=== PATIENT | male | born 1985 | race Caucasian/White ===

== ENCOUNTER 2017-05-22 11:51 | Emergency (ER) | payer OTHER, SELFPAY ==
[2017-05-22 11:52] VITALS: BP 140/72; PULSE 109; RESP 20; TEMP 36.7; O2SAT 100; BMI 24.0
--- NOTE | 2017-05-22 11:53 | [facility].EDGENADL ---
ED Disposition Clinical Impression: Chest pain, atypical Acute bronchitis Qualifiers: Bronchitis organism: unspecified organism Qualified Code(s): J20.9 - Acute bronchitis, unspecified Disposition: Home, Self-Care Condition on Discharge: Good Instructions: DI for Atypical Chest Pain, DI for Acute Bronchitis Additional Instructions: You are being provided with a list of physicians available for follow-up of your condition. Please call a physician on this list to arrange a follow-up appointment as soon as possible. Additional instructions for ACUTE BRONCHITIS: Use Tylenol or Ibuprofen for pain or fever. Rest and plenty of fluids. Return immediately if you have an uncontrollable fever greater than 102 degrees, severe headache or neck stiffness, difficulty breathing or shortness of breath, persistent vomiting, severe sore throat or inability to swallow. See your physician if not improving in 4-5 days. Additional instructions for CHEST PAIN: See your physician as soon as possible for further evaluation. Return immediately if worsening chest pain, vomiting, shortness of breath, fever, coughing of blood. Prescriptions: Ibuprofen [Ibuprofen 800mg Tab] 800 mg PO Q8HP PRN #15 tab PRN Reason: Moderate Pain Azithromycin [Z-Anastacio 250mg Tab] 250 mg PO UD DOSE PK #6 tab Benzonatate [Tessalon Perle 100mg Cap] 100 mg PO TIDP PRN #20 cap PRN Reason: Cough - Critical Care Critical Care Time: No Attestation: On , the high probability of a clinically significant, sudden or life threatening deterioration of the following system(s) required my full and direct attention, intervention and personal management. The time I documented below is in addition to time spent performing reported procedures but includes the following listed in this critical care notation. Medical Decision Making Vital Signs: 05/22/17 11:52 05/22/17 12:22 Temperature 98.0 F Temperature Source Oral Pulse Rate [Right Radial] 109 H 70 Respiratory Rate 20 20 Blood Pressure [Right Arm] 140/72 125/66 Blood Pressure Mean [Right Arm] 94 85 Blood Pressure Source [Right Arm] Automatic Cuff Automatic Cuff Blood Pressure Position [Right Arm] Sitting Sitting 02 Sat by Pulse Oximetry 100 100 Oxygen Delivery Method Room Air Room Air - Lab Data Lab Results 05/22/17 12:00: WBC 7.6, RBC 5.39, Hgb 16.8, Hct 49.6, MCV 92.1, MCH 31.1, MCHC 33.8, RDW 12.3, Plt Count 248, MPV 7.3 L, Neut % (Auto) 65.9, Lymph % (Auto) 21.9, [place] % (Auto) 7.0, Eos % (Auto) 4.4, Baso % (Auto) 0.8, Neut # (Auto) 5.0, Lymph # (Auto) 1.7, [place] # (Auto) 0.5, Eos # (Auto) 0.3, Baso # (Auto) 0.1 05/22/17 12:00: Sodium 140, Potassium 3.5, Chloride 103, Carbon Dioxide 28, Anion Gap 12.5, BUN 8, Creatinine 0.95, Estimated Creat Clear 120, Estimated GFR 92, Est GFR ( Amer) 111, Glucose 104, Calcium 9.0, Total Bilirubin 0.5, AST 10 L, ALT 25, Alkaline Phosphatase 99, Total Creatine Kinase 76, CK-MB (CK-2) < 0.5, CK-MB (CK-2) Rel Index 0.7, Troponin I < 0.02, Total Protein 7.3, Albumin 3.8, Globulin 3.5 H, Albumin/Globulin Ratio 1.1 05/22/17 12:00: Lactic Acid 0.8 Result diagrams: 05/22/17 12:00 05/22/17 12:00 Orders (Tests/Meds): ED MEDICATIONS Discontinued Medications Generic Name Dose Route Start Last Admin Trade Name Freq PRN Reason Stop Dose Admin Aspirin 324 mg 05/22/17 12:02 05/22/17 12:04 Aspirin 81mg Chewable Tablet PO 05/22/17 12:03 324 mg ONCE ONE Administration ORDERS Category Date Time Status XR chest 2V Stat Exams 05/22/17 12:00 Taken Blood Culture Stat Micro 05/22/17 12:02 Received - Radiology Data #1 Image(s): Chest Image Reviewed: Yes I reviewed the patient's radiology results Preliminary Findings: Normal/NAD - ECG Data Tracing #1 EKG interpreted by Arron Joe MD: Rhythm: sinus tachycardia Rate: 101 [place]: normal Ectopy: none Conduction: normal ST Segment Changes: none T Wave Changes: none Q Waves: non
--- NOTE | 2017-05-22 12:00 | XR_ITS ---
XR chest 2V HISTORY: ITS.REASON: Chest Pain ORDERING PHYSICIAN: Arron Joe MD PATIENT AGE: 31 years COMPARISON: None available FINDINGS: The cardiomediastinal silhouette and pulmonary vascularity are within normal limits. The lungs are clear without infiltrates, suspicious nodules, or pleural effusions. No acute bony abnormalities. IMPRESSION: Negative chest, no acute finding
[2017-05-22 12:22] VITALS: BP 125/66; PULSE 70; RESP 20; O2SAT 100
[2017-05-22 12:23] LABS: Basophils # 0.1 K/mm3 (0-0.2); Basophils % 0.8 % (0.1-2.0); Eosinophils # 0.3 K/mm3 (0.0-0.4); Eosinophils % 4.4 % (0.1-12.0); Hematocrit 49.6 % (42.0-52.0); Hemoglobin 16.8 g/dL (14.1-18.0); Lymphocytes # 1.7 K/mm3 (0.7-4.5); Lymphocytes % 21.9 K/mm3 (10-50); Mean Corpuscular HGB Conc 33.8 g/dL (31.8-35.4); Mean Corpuscular Hemoglobin 31.1 pg (27.0-31.2); Mean Corpuscular Volume 92.1 fl (80-94); Mean Platelet Volume 7.3 fl (7.4-10.4); Monocytes # 0.5 K/mm3 (0.1-1.0); Neutrophils % 65.9 % (37.0-80.0); Platelet Count 248 K/mm3 (142-424); Red Blood Count 5.39 M/mm3 (4.60-6.20); Red Cell Distribution Width 12.3 % (11.5-17.5); White Blood Count 7.6 K/mm3 (4.8-10.8)
[2017-05-22 12:30] LABS: Lactic Acid 0.8 mmol/L (0.4-2.0)
[2017-05-22 12:47] LABS: Alanine Aminotransferase 25 U/L (12-78); Albumin Level 3.8 gm/dL (3.4-5.0); Albumin/Globulin Ratio 1.1 (1.1-1.8); Alkaline Phosphatase 99 U/L (46-116); Anion Gap 12.5 mEq/L (5-15); Aspartate Amino Transferase 10 U/L (15-37); Bilirubin,Total 0.5 mg/dL (0.2-1.0); Blood Urea Nitrogen 8 mg/dL (7-18); Carbon Dioxide 28 mmol/L (21.0-32.0); Chloride 103 mmol/L (98-107); Creatine Kinase 76 U/L (39-308); Creatinine Clearance Estimated 120 mL/min (0-300); Creatinine,Serum 0.95 mg/dL (0.70-1.30); Estimated Glomerular Filt Rate 92 ml/min (>60); GFR (African American) 111 ML/MIN (>60); Globulin 3.5 gm/dl (1.3-3.2); Glucose 104 mg/dL (74-106); Potassium 3.5 mmoL/L (3.5-5.1); Sodium 140 mmol/L (136-145); Total Protein,Serum 7.3 gm/dL (6.4-8.2); Troponin I < 0.02 ng/ml (0.00-0.06)
[2017-05-22 12:50] LABS: CKMB Relative Index 0.7 U/L (0-4.0); Creatine Kinase MB < 0.5 mg/ml (0.0-3.6)
[2017-05-22 13:07] VITALS: BP 126/78; PULSE 74; RESP 20; TEMP 36.9; O2SAT 99
== END 2017-05-22 13:12 | disposition home or self-care (01) ==
PROVIDERS: Emergency Provider Emergency Medicine
DX: J20.9 Acute bronchitis, unspecified (principal)
CPT/HCPCS: 71046; 80053; 82550; 82553; 83605; 84484; 85025; 87040; 93005; 93041; 99284